=== PATIENT | female | born 1950 | race Caucasian/White ===

== ENCOUNTER 2017-02-13 16:11 | Emergency (ER) | payer MEDICARE ==
[2017-02-13 16:58] VITALS: BP 151/98
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
== END 2017-02-13 17:56 | disposition home or self-care (01) ==
LOC: UCEAST 16:11
DX: K11.20 Sialoadenitis, unspecified (principal); Z88.2 Allergy status to sulfonamides; Z96.649 Presence of unspecified artificial hip joint; Z98.42 Cataract extraction status, left eye; Z98.41 Cataract extraction status, right eye
CPT/HCPCS: 99212; G0463

== ENCOUNTER 2018-12-11 14:37 | Emergency (ER) | payer MEDICARE ==
[2018-12-11 15:04] VITALS: BP 158/88
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
== END 2018-12-11 15:59 | disposition home or self-care (01) ==
LOC: UCEAST 14:37
DX: J01.90 Acute sinusitis, unspecified (principal); I10 Essential (primary) hypertension; Z96.649 Presence of unspecified artificial hip joint; Z91.040 Latex allergy status; Z91.013 Allergy to seafood; Z88.2 Allergy status to sulfonamides; Z88.8 Allergy status to other drugs, medicaments and biological substances; Z91.018 Allergy to other foods; F17.210 Nicotine dependence, cigarettes, uncomplicated
CPT/HCPCS: 99212; G0463

== ENCOUNTER 2022-03-02 04:37 | Inpatient (IN) ==
[2022-03-02] MEDS ORDERED: Albuterol HFA INHALER 8 gm MDI INH ONE (04:52)
[2022-03-02 05:55] LABS: ABS Lymphocytes 0.3 10^3/ul (1.0-4.8); ABS Monocytes 0.2 10^3/ul (0-0.8); ABS Neutrophils 4.2 10^3/ul (1.5-7.7); Hematocrit 40 % (35-47); Hemoglobin 13.6 g/dL (12.0-16.0); Mean Corpuscular HGB Conc 34 g/dL (31-36); Mean Corpuscular Hemoglobin 33 pg (27-31); Mean Corpuscular Volume 96 fL (80-97); Mean Platelet Volume 7.1 fL (7.4-10.4); Platelet Count 260 10^3/uL (150-450); Red Blood Count 4.15 10^6 /uL (3.70-4.87); Red Cell Distribution Width 12 % (10-15); White Blood Count 4.8 10^3/uL (3.5-10.8)
[2022-03-02 06:19] LABS: INR 1.03 (0.86-1.15)
[2022-03-02 06:33] LABS: Albumin 3.9 g/dL (3.2-5.2); Albumin/Globulin Ratio 1.5 (1-3); Calcium 8.4 mg/dL (8.6-10.3); Globulin 2.6 g/dL (2-4); Total Bilirubin 0.3 mg/dL (0.2-1.0); Total Protein 6.5 g/dL (6.4-8.9); eGFR CKD-EPI 96.1 (>60)
[2022-03-02] MEDS ORDERED: Remdesivir 100 mg Vial 200 MG in NS 0.9% 250 ml 210 ML IV ONE (08:30)
[2022-03-02 08:37] LABS: Magnesium 1.9 mg/dL (1.9-2.7)
[2022-03-02 08:42] LABS: C Reactive Protein 12.33 mg/L (<8.01)
[2022-03-02] MEDS ORDERED: Albuterol HFA INHALER 8 gm MDI INH PRN (08:50)
[2022-03-02 08:51] LABS: TSH Ultra Thyroid Stim Horm 2.58 mcIU/mL (0.34-5.60)
[2022-03-02] MEDS ORDERED: Lorazepam PYXIS KEY PRN (08:52)
[2022-03-02 08:57] LABS: Ferritin 103.4 ng/mL (11-307)
[2022-03-02] MEDS: Mometasone/Formoter 200/5 MDI INH SCH ×2 (09:40→19:01)
[2022-03-02 09:51] LABS: High Sensitivity Troponin 1 Hr 9 pg/mL (<15)
[2022-03-02] MEDS: Cholecalciferol (VIT D3) 1,000 unit TAB PO SCH (10:02)
[2022-03-02] MEDS ORDERED: Thiamine IV 100 MG, Folic Acid IV 1 MG, Multiple Vitamin IV ADULT 10 ML in NS 0.9% 1000... IVPB ONE (11:30)
[2022-03-02] MEDS ORDERED: LORazepam 2 mg VIAL 1 ml IV PUSH PRN ×2 (12:00→16:00)
[2022-03-02] MEDS: methylPREDNISolone SOD 40 mg/ml 1 ml VIAL IV SCH (15:35)
[2022-03-02] MEDS: Enoxaparin 40 MG/0.4 ML SYR SUBCUT SCH (15:35)
[2022-03-03 06:57] LABS: ABS Lymphocytes 0.9 10^3/ul (1.0-4.8); ABS Monocytes 0.8 10^3/ul (0-0.8); ABS Neutrophils 3.6 10^3/ul (1.5-7.7); Eosinophil % 0.1 %; Hematocrit 40 % (35-47); Hemoglobin 13.7 g/dL (12.0-16.0); Lymphocyte % 17.3 %; Mean Corpuscular HGB Conc 34 g/dL (31-36); Mean Corpuscular Hemoglobin 33 pg (27-31); Mean Corpuscular Volume 95 fL (80-97); Nucleated Red Blood Cells % 0.1; Platelet Count 275 10^3/uL (150-450); Red Blood Count 4.19 10^6 /uL (3.70-4.87); Red Cell Distribution Width 13 % (10-15); White Blood Count 5.4 10^3/uL (3.5-10.8)
[2022-03-03 07:21] LABS: INR 1.11 (0.86-1.15)
[2022-03-03 07:40] LABS: Albumin 3.6 g/dL (3.2-5.2); Albumin/Globulin Ratio 1.4 (1-3); Calcium 8.9 mg/dL (8.6-10.3); Globulin 2.5 g/dL (2-4); Potassium 3.6 mmol/L (3.5-5.0); Total Bilirubin 0.4 mg/dL (0.2-1.0); Total Protein 6.1 g/dL (6.4-8.9); eGFR CKD-EPI 99.6 (>60)
[2022-03-03] MEDS: Mometasone/Formoter 200/5 MDI INH SCH ×2 (08:23→20:42)
[2022-03-03] MEDS: Remdesivir 100 mg Vial 100 MG in NS 0.9% 250 ml 230 ML IV SCH (10:01)
[2022-03-03] MEDS: Multivitamins/Minerals TAB PO SCH (10:01)
[2022-03-03] MEDS: Cholecalciferol (VIT D3) 1,000 unit TAB PO SCH (10:01)
[2022-03-03] MEDS: methylPREDNISolone SOD 40 mg/ml 1 ml VIAL IV SCH (10:02)
[2022-03-03] MEDS: Enoxaparin 40 MG/0.4 ML SYR SUBCUT SCH (14:35)
[2022-03-03] MEDS: SPIRIVA Respimat (tiotropium) 2.5 mcg/inh Inhaler INH SCH (16:33)
[2022-03-04 06:56] LABS: ABS Lymphocytes 1.9 10^3/ul (1.0-4.8); ABS Monocytes 0.8 10^3/ul (0-0.8); ABS Neutrophils 3.9 10^3/ul (1.5-7.7); Eosinophil % 0.3 %; Hematocrit 39 % (35-47); Hemoglobin 13.5 g/dL (12.0-16.0); Lymphocyte % 29.4 %; Mean Corpuscular HGB Conc 34 g/dL (31-36); Mean Corpuscular Hemoglobin 33 pg (27-31); Mean Corpuscular Volume 96 fL (80-97); Mean Platelet Volume 6.8 fL (7.4-10.4); Platelet Count 268 10^3/uL (150-450); Red Blood Count 4.12 10^6 /uL (3.70-4.87); Red Cell Distribution Width 13 % (10-15); White Blood Count 6.6 10^3/uL (3.5-10.8)
[2022-03-04 07:01] LABS: INR 1.12 (0.86-1.15)
[2022-03-04] MEDS: Mometasone/Formoter 200/5 MDI INH SCH (07:30)
[2022-03-04] MEDS: SPIRIVA Respimat (tiotropium) 2.5 mcg/inh Inhaler INH SCH (07:30)
[2022-03-04 07:44] LABS: Albumin 3.7 g/dL (3.2-5.2); Albumin/Globulin Ratio 1.5 (1-3); Calcium 8.8 mg/dL (8.6-10.3); Globulin 2.4 g/dL (2-4); Potassium 3.7 mmol/L (3.5-5.0); Total Bilirubin 0.5 mg/dL (0.2-1.0); Total Protein 6.1 g/dL (6.4-8.9); eGFR CKD-EPI 99.1 (>60)
[2022-03-04] MEDS: Cholecalciferol (VIT D3) 1,000 unit TAB PO SCH (08:59)
[2022-03-04] MEDS: Multivitamins/Minerals TAB PO SCH (08:59)
[2022-03-04] MEDS: Remdesivir 100 mg Vial 100 MG in NS 0.9% 250 ml 230 ML IV SCH (08:59)
[2022-03-04] MEDS ORDERED: Calcium Carb (TUMS) 500 mg CHEW TAB PO PRN (12:29)
[2022-03-04 12:45] VITALS: BP 149/87
[2022-03-04 13:01] LABS: Magnesium 1.9 mg/dL (1.9-2.7)
[2022-03-04] MEDS: Enoxaparin 40 MG/0.4 ML SYR SUBCUT SCH (13:17)
== END 2022-03-04 15:00 | disposition home or self-care (01) | DRG 177 ==
LOC: ED 04:37 → EDHOLD 04:37 → SUATTDRO 09:00 → OBSVTOIN 09:21 → EDHOLD 10:32 → MEDTELE 11:27
PROVIDERS: ADMIT Internal Medicine; ATTEND Internal Medicine